=== PATIENT | male | born 1935 | race Native Hawaiian/Other Pacific Islander ===

== ENCOUNTER 2017-10-21 20:34 | Emergency (ER) | payer MEDICARE ==
[2017-10-21] MEDS ORDERED: APRESOLINE IV ONE (21:33)
--- NOTE | 2017-10-21 21:40 | Emergency Department Report ---
ED Altered Mental Status HPI - General Stated Complaint: ABD PAIN Time Seen by Provider: 10/21/17 21:24 Source: patient, family Limitations: Language Barrier, Altered Mental Status - History of Present Illness Initial Comments: Patient is 82 years old male with history of diabetes and hypertension and asthma. Patient brought in by his family for main complaint of confusion and scrotal swelling was whitish discharge. Family stated he woke up this morning confused. Patient is disoriented in time. But not place and person. Family denied fever, nausea or vomiting. No recent trauma or head injury. Patient denied any chest pain, abdominal pain or other type of pain. MD Complaint: altered mental status, confusion -: This morning Severity: moderate Context: diabetes - Related Data Home Medications Medication Instructions Recorded Confirmed Last Taken Lisinopril 40 mg PO QDAY 08/29/14 07/03/16 1 Day Ago ~07/02/16 metFORMIN [Glucophage] 500 mg PO BID 08/29/14 07/03/16 1 Day Ago ~07/02/16 amLODIPine [Norvasc] 10 mg PO DAILY 07/03/16 07/03/16 1 Day Ago ~07/02/16 Previous Rx's Medication Instructions Recorded Last Taken Type Simvastatin 40 mg PO QHS #30 tablet 08/30/14 1 Day Ago Rx ~07/02/16 Ciprofloxacin HCl [Ciprofloxacin 500 mg PO Q12HR #14 tab 07/04/16 Unknown Rx TAB] HYDROcodone/APAP 5-325 [[place] 1 - 2 each PO Q6HR PRN #14 tablet 07/04/16 Unknown Rx 5/325] Ibuprofen [Motrin 800 MG tab] 800 mg PO Q8HR PRN #20 tablet 07/04/16 Unknown Rx Allergies Allergy/AdvReac Type Severity Reaction Status Date / Time Penicillins Allergy Severe Shortness Verified 07/03/16 23:26 of Breath ED Review of Systems ROS: Stated complaint: ABD PAIN Other details as noted in HPI Comment: All other systems reviewed and negative Constitutional: denies: chills, malaise Respiratory: denies: cough, orthopnea, shortness of breath, SOB with exertion, SOB at rest, wheezing Cardiovascular: denies: chest pain, palpitations, dyspnea on exertion Gastrointestinal: denies: abdominal pain, nausea, vomiting, diarrhea, constipation, hematemesis, melena, hematochezia Genitourinary: discharge, other (testicular swelling). denies: urgency, hematuria, testicular pain Neurological: denies: headache, weakness, numbness, paresthesias, confusion, abnormal gait, vertigo ED Past Medical Hx - Past Medical History Hx Hypertension: Yes Hx Diabetes: Yes Hx Arthritis: Yes Hx Asthma: Yes Additional medical history: cholesterol - Surgical History Additional Surgical History: hernia repair - Social History Smoking Status: Never Smoker Substance Use Type: None - Medications Home Medications: Home Medications Medication Instructions Recorded Confirmed Last Taken Type Lisinopril 40 mg PO QDAY 08/29/14 07/03/16 1 Day Ago History ~07/02/16 metFORMIN [Glucophage] 500 mg PO BID 08/29/14 07/03/16 1 Day Ago History ~07/02/16 Simvastatin 40 mg PO QHS #30 tablet 08/30/14 07/03/16 1 Day Ago Rx ~07/02/16 amLODIPine [Norvasc] 10 mg PO DAILY 07/03/16 07/03/16 1 Day Ago History ~07/02/16 Ciprofloxacin HCl [Ciprofloxacin 500 mg PO Q12HR #14 tab 07/04/16 Unknown Rx TAB] HYDROcodone/APAP 5-325 [[place] 1 - 2 each PO Q6HR PRN #14 tablet 07/04/16 Unknown Rx 5/325] Ibuprofen [Motrin 800 MG tab] 800 mg PO Q8HR PRN #20 tablet 07/04/16 Unknown Rx ED Physical Exam - General Limitations: Language Barrier, Altered Mental Status General appearance: alert, in no apparent distress - Head Head exam: Present: atraumatic, normocephalic, normal inspection - Eye Eye exam: Present: normal appearance, PERRL - ENT ENT exam: Present: normal exam, normal orophraynx, mucous membranes moist - Neck Neck exam: Present: normal inspection, full ROM. Absent: tenderness, meningismus, lymphadenopathy, thyromegaly - Respiratory Respiratory exam: Present: normal lung sounds bilaterally. Absent: respiratory distress, wheezes, rales, rhonchi, stridor, chest wall tenderness, accessory muscle use, decreased breath sounds, prolonged expiratory - Cardiovascular Cardiovascular Exam: Present: regular rate, normal rhythm, normal heart sounds - GI/Abdominal GI/Abdominal exam: Present: soft, normal bowel sounds. Absent: distended, tenderness, guarding, rebound, rigid, organomegaly, mass, bruit, pulsatile mass - exam: Present: normal inspection. Absent: testicular tenderness, urethral discharge, scrotal swelling, circumcision External exam: Present: erythema, other (CandiDIASIS). Absent: swelling, lacerations, ecchymosis, bleeding - Extremities Exam Extremities exam: Present: normal inspection, full ROM, normal capillary refill. Absent: tenderness, pedal edema, joint swelling, calf tenderness - Back Exam Back exam: Present: normal inspection, full ROM. Absent: tenderness, CVA tenderness (R), CVA tenderness (L), muscle spasm, paraspinal tenderness, vertebral tenderness, rash noted - Neurological Exam Neurological exam: Present: alert, altered, CN II-XII intact, normal gait, reflexes normal - Skin Skin exam: Present: warm, intact, normal color ED Course Vital Signs 10/21/17 10/21/17 10/21/17 21:22 21:30 21:36 Temperature 98.5 F Pulse Rate 104 H 107 H Respiratory 18 23 Rate Blood Pressure 210/119 182/108 210/119 Blood Pressure 210/119 [Left] O2 Sat by Pulse 99 99 Oximetry 10/21/17 10/21/17 10/21/17 21:45 21:58 22:00 Temperature Pulse Rate 99 H 100 H 108 H Respiratory 20 12 Rate Blood Pressure 182/108 186/116 144/90 Blood Pressure [Left] O2 Sat by Pulse 98 99 Oximetry 10/21/17 10/21/17 10/21/17 22:15 22:37 22:45 Temperature Pulse Rate 107 H 101 H Respiratory 20 21 Rate Blood Pressure 153/86 153/86 124/81 Blood Pressure [Left] O2 Sat by Pulse 98 98 98 Oximetry 10/21/17 10/21/17 10/21/17 23:00 23:15 23:31 Temperature Pulse Rate 100 H 104 H 107 H Respiratory 13 20 20 Rate Blood Pressure 129/81 134/78 141/83 Blood Pressure [Left] O2 Sat by Pulse 99 98 98 Oximetry 10/22/17 10/22/17 10/22/17 00:25 00:30 00:45 Temperature Pulse Rate 101 H 99 H 101 H Respiratory 12 10 L 16 Rate Blood Pressure 151/91 145/94 145/94 Blood Pressure [Left] O2 Sat by Pulse 98 98 98 Oximetry 10/22/17 10/22/17 10/22/17 01:00 01:15 01:30 Temperature Pulse Rate 97 H 94 H 94 H Respiratory 14 14 20 Rate Blood Pressure 134/65 145/94 145/72 Blood Pressure [Left] O2 Sat by Pulse 98 97 97 Oximetry - Reevaluation(s) Reevaluation #1: 10/22/17 02:45 Patient stated that he is feeling better. I informed the family about his blood work, ultrasound and CAT scan. - Lab Data Result diagrams: 10/21/17 21:45 10/21/17 21:45 Lab Results 10/21/17 10/21/17 10/21/17 Range/Units 21:45 21:45 21:45 WBC 7.4 (4.5-11.0) K/mm3 RBC 4.61 (3.65-5.03) M/mm3 Hgb 14.3 (11.8-15.2) gm/dl Hct 41.0 (35.5-45.6) % MCV 89 (84-94) fl MCH 31 (28-32) pg MCHC 35 H (32-34) % RDW 13.2 (13.2-15.2) % Plt Count 136 L (140-440) K/mm3 Lymph % (Auto) 19.8 (13.4-35.0) % [place] % (Auto) 8.2 H (0.0-7.3) % Eos % (Auto) 2.6 (0.0-4.3) % Baso % (Auto) 0.6 (0.0-1.8) % Lymph # 1.5 (1.2-5.4) K/mm3 [place] # 0.6 (0.0-0.8) K/mm3 Eos # 0.2 (0.0-0.4) K/mm3 Baso # 0.0 (0.0-0.1) K/mm3 Seg Neutrophils % 68.8 (40.0-70.0) % Seg Neutrophils # 5.1 (1.8-7.7) K/mm3 PT 13.8 (12.2-14.9) Sec. INR 1.01 (0.87-1.13) APTT 29.4 (24.2-36.6) Sec. Sodium 135 L (137-145) mmol/L Potassium 4.0 (3.6-5.0) mmol/L Chloride 96.7 L (98-107) mmol/L Carbon Dioxide 24 (22-30) mmol/L Anion Gap 18 mmol/L BUN 19 (9-20) mg/dL Creatinine 1.0 (0.8-1.5) mg/dL Estimated GFR > 60 ml/min BUN/Creatinine Ratio 19 % Glucose 389 H (75-100) mg/dL POC Glucose (70-105) Lactic Acid (0.7-2.0) mmol/L Calcium 9.0 (8.4-10.2) mg/dL Total Bilirubin 0.20 (0.1-1.2) mg/dL AST 12 (5-40) units/L ALT 6 L (7-56) units/L Alkaline Phosphatase 130 H (35-129) units/L Troponin T < 0.010 (0.00-0.029) ng/mL Total Protein 6.6 (6.3-8.2) g/dL Albumin 3.7 L (3.9-5) g/dL Albumin/Globulin Ratio 1.3 % Urine Color (Yellow) Urine Turbidity (Clear) Urine pH (5.0-7.0) Ur Specific [place] (1.003-1.030) Urine Protein (Negative) mg/dL Urine Glucose (UA) (Negative) mg/dL Urine Ketones (Negative) mg/dL Urine Blood (Negative) Urine Nitrite (Negative) Urine Bilirubin (Negative) Urine Urobilinogen (<2.0) mg/dL Ur Leukocyte Esterase (Negative) Urine WBC (Auto) (0.0-6.0) /HPF Urine RBC (Auto) (0.0-6.0) /HPF Urine Opiates Screen Urine Methadone Screen Ur Barbiturates Screen Ur Phencyclidine Scrn Ur Amphetamines Screen U Benzodiazepines Scrn Urine Cocaine Screen U Marijuana (THC) Screen Drugs of Abuse Note 10/21/17 10/21/17 10/21/17 Range/Units 21:45 22:01 22:01 WBC (4.5-11.0) K/mm3 RBC (3.65-5.03) M/mm3 Hgb (11.8-15.2) gm/dl Hct (35.5-45.6) % MCV (84-94) fl MCH (28-32) pg MCHC (32-34) % RDW (13.2-15.2) % Plt Count (140-440) K/mm3 Lymph % (Auto) (13.4-35.0) % [place] % (Auto) (0.0-7.3) % Eos % (Auto) (0.0-4.3) % Baso % (Auto) (0.0-1.8) % Lymph # (1.2-5.4) K/mm3 [place] # (0.0-0.8) K/mm3 Eos # (0.0-0.4) K/mm3 Baso # (0.0-0.1) K/mm3 Seg Neutrophils % (40.0-70.0) % Seg Neutrophils # (1.8-7.7) K/mm3 PT (12.2-14.9) Sec. INR (0.87-1.13) APTT (24.2-36.6) Sec. Sodium (137-145) mmol/L Potassium (3.6-5.0) mmol/L Chloride (98-107) mmol/L Carbon Dioxide (22-30) mmol/L Anion Gap mmol/L BUN (9-20) mg/dL Creatinine (0.8-1.5) mg/dL Estimated GFR ml/min BUN/Creatinine Ratio % Glucose (75-100) mg/dL POC Glucose (70-105) Lactic Acid 1.70 (0.7-2.0) mmol/L Calcium (8.4-10.2) mg/dL Total Bilirubin (0.1-1.2) mg/dL AST (5-40) units/L ALT (7-56) units/L Alkaline Phosphatase (35-129) units/L Troponin T (0.00-0.029) ng/mL Total Protein (6.3-8.2) g/dL Albumin (3.9-5) g/dL Albumin/Globulin Ratio % Urine Color Yellow (Yellow) Urine Turbidity Clear (Clear) Urine pH 7.0 (5.0-7.0) Ur Specific [place] 1.022 (1.003-1.030) Urine Protein <15 mg/dl (Negative) mg/dL Urine Glucose (UA) >=500 (Negative) mg/dL Urine Ketones Neg (Negative) mg/dL Urine Blood Neg (Negative) Urine Nitrite Neg (Negative) Urine Bilirubin Neg (Negative) Urine Urobilinogen < 2.0 (<2.0) mg/dL Ur Leukocyte Esterase Neg (Negative) Urine WBC (Auto) < 1.0 (0.0-6.0) /HPF Urine RBC (Auto) 1.0 (0.0-6.0) /HPF Urine Opiates Screen Presumptive negative Urine Methadone Screen Presumptive negative Ur Barbiturates Screen Presumptive negative Ur Phencyclidine Scrn Presumptive negative Ur Amphetamines Screen Presumptive negative U Benzodiazepines Scrn Presumptive negative Urine Cocaine Screen Presumptive negative U Marijuana (THC) Screen Presumptive negative Drugs of Abuse Note Disclamer 10/21/17 10/22/17 Range/Units 23:00 02:15 WBC (4.5-11.0) K/mm3 RBC (3.65-5.03) M/mm3 Hgb (11.8-15.2) gm/dl Hct (35.5-45.6) % MCV (84-94) fl MCH (28-32) pg MCHC (32-34) % RDW (13.2-15.2) % Plt Count (140-440) K/mm3 Lymph % (Auto) (13.4-35.0) % [place] % (Auto) (0.0-7.3) % Eos % (Auto) (0.0-4.3) % Baso % (Auto) (0.0-1.8) % Lymph # (1.2-5.4) K/mm3 [place] # (0.0-0.8) K/mm3 Eos # (0.0-0.4) K/mm3 Baso # (0.0-0.1) K/mm3 Seg Neutrophils % (40.0-70.0) % Seg Neutrophils # (1.8-7.7) K/mm3 PT (12.2-14.9) Sec. INR (0.87-1.13) APTT (24.2-36.6) Sec. Sodium (137-145) mmol/L Potassium (3.6-5.0) mmol/L Chloride (98-107) mmol/L Carbon Dioxide (22-30) mmol/L Anion Gap mmol/L BUN (9-20) mg/dL Creatinine (0.8-1.5) mg/dL Estimated GFR ml/min BUN/Creatinine Ratio % Glucose (75-100) mg/dL POC Glucose 342 H 257 H (70-105) Lactic Acid (0.7-2.0) mmol/L Calcium (8.4-10.2) mg/dL Total Bilirubin (0.1-1.2) mg/dL AST (5-40) units/L ALT (7-56) units/L Alkaline Phosphatase (35-129) units/L Troponin T (0.00-0.029) ng/mL Total Protein (6.3-8.2) g/dL Albumin (3.9-5) g/dL Albumin/Globulin Ratio % Urine Color (Yellow) Urine Turbidity (Clear) Urine pH (5.0-7.0) Ur Specific [place] (1.003-1.030) Urine Protein (Negative) mg/dL Urine Glucose (UA) (Negative) mg/dL Urine Ketones (Negative) mg/dL Urine Blood (Negative) Urine Nitrite (Negative) Urine Bilirubin (Negative) Urine Urobilinogen (<2.0) mg/dL Ur Leukocyte Esterase (Negative) Urine WBC (Auto) (0.0-6.0) /HPF Urine RBC (Auto) (0.0-6.0) /HPF Urine Opiates Screen Urine Methadone Screen Ur Barbiturates Screen Ur Phencyclidine Scrn Ur Amphetamines Screen U Benzodiazepines Scrn Urine Cocaine Screen U Marijuana (THC) Screen Drugs of Abuse Note Critical care attestation.: If time is entered above; I have spent that time in minutes in the direct care of this critically ill patient, excluding procedure time. ED Disposition Clinical Impression: Hypertension, Confusion, Cand[place] intertrigo Disposition: TO HOME OR SELFCARE Is pt being admited?: No Condition: Stable Instructions: Hypertension (ED) Referrals: PRIMARY CARE, [Primary Care Provider] - 3-5 Days
[2017-10-21 22:23] LABS: Basophils % (Auto) 0.6 % (0.0-1.8); Eosinophils # (Auto) 0.2 K/mm3 (0.0-0.4); Eosinophils % (Auto) 2.6 % (0.0-4.3); Hemoglobin 14.3 gm/dl (11.8-15.2); Lymphocytes # (Auto) 1.5 K/mm3 (1.2-5.4); Lymphocytes % (Auto) 19.8 % (13.4-35.0); Mean Corpuscular HGB Conc 35 % (32-34); Mean Corpuscular Hemoglobin 31 pg (28-32); Mean Corpuscular Volume 89 fl (84-94); Monocytes # (Auto) 0.6 K/mm3 (0.0-0.8); Monocytes % (Auto) 8.2 % (0.0-7.3); Platelet Count 136 K/mm3 (140-440); Red Blood Count 4.61 M/mm3 (3.65-5.03); Red Cell Distribution Width 13.2 % (13.2-15.2)
[2017-10-21 22:32] LABS: INR 1.01 (0.87-1.13)
[2017-10-21 22:32] LABS: Bilirubin,Urine NEG (Negative); Blood,Urine NEG (Negative); Color,Urine Yellow (Yellow); Protein,Urine <15 mg/dL mg/dL (Negative); Urobilinogen,Urine < 2.0 mg/dL (<2.0); WBC,Urine < 1.0 /HPF (0.0-6.0)
[2017-10-21 22:34] LABS: Amphetamine Screen,Urine PRESUMPTIVE NEGATIVE; Benzodiazepines Screen,Urine PRESUMPTIVE NEGATIVE; Cannabinoid Screen,Urine PRESUMPTIVE NEGATIVE; Cocaine Screen,Urine PRESUMPTIVE NEGATIVE; Methadone Screen,Urine PRESUMPTIVE NEGATIVE; Opiate Screen,Urine PRESUMPTIVE NEGATIVE
[2017-10-21 22:34] LABS: Partial Thromboplastin Time 29.4 Sec. (24.2-36.6)
[2017-10-21 22:36] LABS: Alanine Aminotransferase 6 units/L (7-56); Albumin 3.7 g/dL (3.9-5); BUN/Creatinine Ratio 19; Blood Urea Nitrogen 19 mg/dL (9-20); Hemolysis Index 2
[2017-10-21] MEDS ORDERED: HumuLIN R IV ONE (22:49)
--- NOTE | 2017-10-21 23:22 | Cat Scan Report ---
FINAL REPORT EXAM: CT HEAD/BRAIN WO CON HISTORY: Altered Mental Status TECHNIQUE: CT head without contrast PRIORS: None. FINDINGS: No acute intra-axial or extra-axial hemorrhage is identified. There is no evidence of midline shift or mass effect. There is generalized prominence of ventricles and sulci consistent with mild generalized atrophy. Mai-white matter differentiation is intact. No acute parenchymal abnormalities seen. There are patchy and confluent hypodensities within the supratentorial white matter. Bony calvarium is grossly intact. Visualized portions of the mastoids and paranasal sinuses are unremarkable. 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
--- NOTE | 2017-10-21 23:34 | XRay Report ---
FINAL REPORT PROCEDURE: XR CHEST 1V AP TECHNIQUE: Chest radiograph anteroposterior view. CPT 33105 HISTORY: Altered Mental Status COMPARISON: No prior studies are available for comparison. FINDINGS: Heart: Normal. Mediastinum/Vessels: Normal. Lungs/Pleural space: Lungs are expanded. There is calcified granuloma at the left lung base. There are no infiltrates, effusions or pneumothoraces.. Bony thorax: No acute osseous abnormality. Life support devices: None. IMPRESSION: No acute cardiopulmonary abnormality.
--- NOTE | 2017-10-22 01:44 | Ultrasound Report ---
FINAL REPORT PROCEDURE: US TESTICULAR DOPPLER COMP TECHNIQUE: Real-time person-scale and color flow Doppler sonography in multiple planes of the scrotum, testicles, and epididymes was performed. Velocity spectral waveform analysis Doppler imaging of the arterial inflow and venous outflow of the testicles was performed with image documentation. CPT 27030 and 52382 HISTORY: testicular pain/swelling COMPARISON: No prior studies are available for comparison. FINDINGS: RIGHT TESTICLE: Size: 4.9 x 1.9 x 3.5 cm . Appearance: Heterogeneous echotexture. There is no discrete mass. Arterial blood flow: Normal spectral waveforms, flow velocities and color flow images.. Venous blood flow: Normal spectral waveforms and color flow images. Right epididymis: Normal size and echotexture . Hydrocele: There is a small hydrocele.. LEFT TESTICLE Size: 4.4 x 2.5 x 2.7 cm. There is a small septated cyst measuring 4.5 millimeters. Appearance: Heterogeneous echotexture. There is no discrete mass.. Arterial blood flow: Normal spectral waveforms, flow velocities and color flow images.. Venous blood flow: Normal spectral waveforms and color flow images. Leftepididymis: Normal size and echotexture . Hydrocele: Small hydrocele.. IMPRESSION: There is no testicular torsion or orchitis. There are small bilateral hydroceles.
[2017-10-22 03:23] VITALS: BP 136/68
== END 2017-10-22 03:24 | disposition home or self-care (01) ==
LOC: ED 20:34
DX: I10 Essential (primary) hypertension (principal); E11.9 Type 2 diabetes mellitus without complications; J45.909 Unspecified asthma, uncomplicated; Z88.0 Allergy status to penicillin
CPT/HCPCS: 36415; 70450; 71045; 80053; 80307; 81001; 82140; 82962; 84484; 85025; 85610; 85730; 87040; 93005; 93010; 93975; 96374; 96375; 99285; J0360; J1815

== ENCOUNTER 2017-11-04 12:41 | Emergency (ER) | payer MEDICARE ==
[2017-11-04] MEDS ORDERED: DIPRIVAN 10 MG/ML 0 MG/0 ML BOTTLE IV ONE (12:59)
--- NOTE | 2017-11-04 13:06 | Emergency Department Report ---
ED Altered Mental Status HPI - General Chief Complaint: Altered Mental Status Stated Complaint: POSS STROKE Time Seen by Provider: 11/04/17 13:05 Source: EMS Mode of arrival: Stretcher Limitations: Altered Mental Status - History of Present Illness Initial Comments: Patient arrives unable to give history no family members around for history EMS states altered mental status for 30 minutes. No trauma. Arrives with nonverbal eyes not opening with localizing pain essentially Jameel Coma Scale of 8 with possible left-sided deficits. As recently noted no trauma. Remainder of the history was unobtainable. is present but is hard of hearing and speaks no [place] patient arrives altered mental status pinpoint pupils no fever possibly acute CVA MD Complaint: altered mental status, confusion, weakness Severity: mild, moderate, severe Context: other (possible stroke) Associated Symptoms: syncope. denies: chest pain, cough, diaphoresis, fever/ chills, headaches, nausea/vomiting, rash, seizure, shortness of breath, weakness , foul smelling urine - Related Data Home Medications Medication Instructions Recorded Confirmed Last Taken Lisinopril 40 mg PO QDAY 08/29/14 07/03/16 1 Day Ago ~07/02/16 metFORMIN [Glucophage] 500 mg PO BID 08/29/14 07/03/16 1 Day Ago ~07/02/16 amLODIPine [Norvasc] 10 mg PO DAILY 07/03/16 07/03/16 1 Day Ago ~07/02/16 Previous Rx's Medication Instructions Recorded Last Taken Type Simvastatin 40 mg PO QHS #30 tablet 08/30/14 1 Day Ago Rx ~07/02/16 Ciprofloxacin HCl [Ciprofloxacin 500 mg PO Q12HR #14 tab 07/04/16 Unknown Rx TAB] HYDROcodone/APAP 5-325 [[place] 1 - 2 each PO Q6HR PRN #14 tablet 07/04/16 Unknown Rx 5/325] Ibuprofen [Motrin 800 MG tab] 800 mg PO Q8HR PRN #20 tablet 07/04/16 Unknown Rx Fluconazole [Diflucan] 150 mg PO BID #6 tablet 10/22/17 Unknown Rx Allergies Allergy/AdvReac Type Severity Reaction Status Date / Time Penicillins Allergy Severe Shortness Verified 07/03/16 23:26 of Breath ED Review of Systems ROS: Stated complaint: POSS STROKE Other details as noted in HPI Comment: Unobtainable due to pts medical conditions ED Past Medical Hx - Past Medical History Hx Hypertension: Yes Hx Diabetes: Yes Hx Arthritis: Yes Hx Asthma: Yes Additional medical history: cholesterol - Surgical History Additional Surgical History: hernia repair - Social History Smoking Status: Unknown if ever smoked - Medications Home Medications: Home Medications Medication Instructions Recorded Confirmed Last Taken Type Lisinopril 40 mg PO QDAY 08/29/14 07/03/16 1 Day Ago History ~07/02/16 metFORMIN [Glucophage] 500 mg PO BID 08/29/14 07/03/16 1 Day Ago History ~07/02/16 Simvastatin 40 mg PO QHS #30 tablet 08/30/14 07/03/16 1 Day Ago Rx ~07/02/16 amLODIPine [Norvasc] 10 mg PO DAILY 07/03/16 07/03/16 1 Day Ago History ~07/02/16 Ciprofloxacin HCl [Ciprofloxacin 500 mg PO Q12HR #14 tab 07/04/16 Unknown Rx TAB] HYDROcodone/APAP 5-325 [[place] 1 - 2 each PO Q6HR PRN #14 tablet 07/04/16 Unknown Rx 5/325] Ibuprofen [Motrin 800 MG tab] 800 mg PO Q8HR PRN #20 tablet 07/04/16 Unknown Rx Fluconazole [Diflucan] 150 mg PO BID #6 tablet 10/22/17 Unknown Rx ED Physical Exam - General Limitations: Language Barrier, Altered Mental Status General appearance: lethargic, obtunded, other (Jameel Coma Scale of 8 possible gag reflex but poorly arousable and unable to handle his saliva) - Eye Eye exam: Present: other Pupils: Present: miosis - ENT ENT exam: Present: other (drooling) - Neck Neck exam: Present: normal inspection. Absent: tenderness, meningismus - Respiratory Respiratory exam: Present: normal lung sounds bilaterally. Absent: respiratory distress, wheezes, rales, rhonchi, stridor - Cardiovascular Cardiovascular Exam: Present: regular rate, normal heart sounds. Absent: rubs, gallop - GI/Abdominal GI/Abdominal exam: Present: soft. Absent: distended, tenderness, guarding, rebound, mass, pulsatile mass - Extremities Exam Extremities exam: Present: pedal edema. Absent: calf tenderness - Back Exam Back exam: Present: normal inspection. Absent: CVA tenderness (L), muscle spasm , paraspinal tenderness, vertebral tenderness - Neurological Exam Neurological exam: Present: other (patient is unresponsive to I opening and verbal however he does withdraw to pain [place] Coma Scale of 8) - Psychiatric Psychiatric exam: Present: other (poorly responsive) - Skin Skin exam: Present: diaphoretic. Absent: petechiae - Assessment Assessment Interval: Baseline - Level of Consciousness 1a. Level of Consciousness: not alert, rep stimuli - LOC Questions 1b. LOC Questions: answers no questions correctly - LOC Command 1c. LOC Commands: performs no tasks correctly - Best Gaze 2. Best Gaze: partial gaze palsy - Visual 3. Visual: partial hemianopia - Facial Palsy 4. Facial Palsy: partial paralysis - Motor Arm 5a. Motor Arm Left: some gravity effort - Motor Leg 6a. Motor Leg Left: some gravity effort - Limb Ataxia 7. Limb Ataxia: absent - Sensory 8. Sensory: mild/moderate sensory loss - Best Language 9. Best Language: mute/global aphasia - Dysarthria 10. Dysarthria: intubated or other barrier - Extinction and Inattention 11. Extinction/Inattention: profound inattention ED Course Vital Signs 11/04/17 11/04/17 11/04/17 12:41 12:47 12:53 Temperature 98.4 F Pulse Rate 94 H 93 H 93 H Respiratory 12 18 Rate Blood Pressure 173/99 Blood Pressure 167/93 167/93 [Right] O2 Sat by Pulse 100 Oximetry 11/04/17 11/04/17 11/04/17 13:02 13:09 13:30 Temperature Pulse Rate 93 H 94 H 91 H Respiratory 18 16 16 Rate Blood Pressure Blood Pressure 225/128 177/105 165/85 [Right] O2 Sat by Pulse 100 Oximetry 11/04/17 11/04/17 13:43 14:00 Temperature Pulse Rate 88 91 H Respiratory 3 L 18 Rate Blood Pressure 160/101 Blood Pressure 157/99 [Right] O2 Sat by Pulse 100 Oximetry - Reevaluation(s) Reevaluation #1: 11/04/17 14:29 Patient was 30 minutes in an altered mental status on arrival stroke protocol was followed however family did later relate that he was essentially last normal at congregation on Friday - Lab Data Result diagrams: 11/04/17 13:10 11/04/17 13:10 Lab Results 11/04/17 11/04/17 11/04/17 Range/Units 13:10 13:10 13:10 WBC 8.6 (4.5-11.0) K/mm3 RBC 4.94 (3.65-5.03) M/mm3 Hgb 15.2 (11.8-15.2) gm/dl Hct 43.8 (35.5-45.6) % MCV 89 (84-94) fl MCH 31 (28-32) pg MCHC 35 H (32-34) % RDW 13.8 (13.2-15.2) % Plt Count 166 (140-440) K/mm3 Lymph % (Auto) 11.1 L (13.4-35.0) % [place] % (Auto) 6.7 (0.0-7.3) % Eos % (Auto) 0.7 (0.0-4.3) % Baso % (Auto) 0.6 (0.0-1.8) % Lymph # 1.0 L (1.2-5.4) K/mm3 [place] # 0.6 (0.0-0.8) K/mm3 Eos # 0.1 (0.0-0.4) K/mm3 Baso # 0.1 (0.0-0.1) K/mm3 Seg Neutrophils % 80.9 H (40.0-70.0) % Seg Neutrophils # 7.0 (1.8-7.7) K/mm3 PT 14.3 (12.2-14.9) Sec. INR 1.05 (0.87-1.13) APTT 26.3 (24.2-36.6) Sec. Thrombin Time (15.1-19.6) Sec. Sodium 137 (137-145) mmol/L Potassium 3.8 (3.6-5.0) mmol/L Chloride 98.7 (98-107) mmol/L Carbon Dioxide 22 (22-30) mmol/L Anion Gap 20 mmol/L BUN 11 (9-20) mg/dL Creatinine 0.8 (0.8-1.5) mg/dL Estimated GFR > 60 ml/min BUN/Creatinine Ratio 14 % Glucose 315 H (75-100) mg/dL Calcium 9.3 (8.4-10.2) mg/dL Troponin T 0.015 (0.00-0.029) ng/mL 11/04/17 Range/Units 13:10 WBC (4.5-11.0) K/mm3 RBC (3.65-5.03) M/mm3 Hgb (11.8-15.2) gm/dl Hct (35.5-45.6) % MCV (84-94) fl MCH (28-32) pg MCHC (32-34) % RDW (13.2-15.2) % Plt Count (140-440) K/mm3 Lymph % (Auto) (13.4-35.0) % [place] % (Auto) (0.0-7.3) % Eos % (Auto) (0.0-4.3) % Baso % (Auto) (0.0-1.8) % Lymph # (1.2-5.4) K/mm3 [place] # (0.0-0.8) K/mm3 Eos # (0.0-0.4) K/mm3 Baso # (0.0-0.1) K/mm3 Seg Neutrophils % (40.0-70.0) % Seg Neutrophils # (1.8-7.7) K/mm3 PT (12.2-14.9) Sec. INR (0.87-1.13) APTT (24.2-36.6) Sec. Thrombin Time 15.9 (15.1-19.6) Sec. Sodium (137-145) mmol/L Potassium (3.6-5.0) mmol/L Chloride (98-107) mmol/L Carbon Dioxide (22-30) mmol/L Anion Gap mmol/L BUN (9-20) mg/dL Creatinine (0.8-1.5) mg/dL Estimated GFR ml/min BUN/Creatinine Ratio % Glucose (75-100) mg/dL Calcium (8.4-10.2) mg/dL Troponin T (0.00-0.029) ng/mL - EKG Data -: EKG Interpreted by Me EKG shows normal: sinus rhythm When compared to previous EKG there are: other (no acute ischemic change) - Radiology Data Radiology results: report reviewed - Medical Decision Making Given GCS of 8 patient was intubated with rapid sequence intubation, he was emergently sent to CAT scan within the 30 minute window case was discussed with Dr. Flores of tele neurology who did evaluate the patient as well. CT results did show occipital lobe nonhemorrhagic infarct subacute with vertebrobasilar ischemia and likely brainstem stroke all of it nonhemorrhagic by likely subacute. Dr. choudhary stated than there was no interventions available given the nature of the length of time since symptoms began as well as the severity. Patient has had previous strokes case was discussed with Dr. Muñoz of hospital service for further evaluation and likely hospice. 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 ED Disposition Clinical Impression: CVA (cerebral vascular accident) Disposition: [id number]/TX-[id number] ANOTHER TYPE HLTHCARE Is pt being admited?: No Condition: Stable Referrals: PRIMARY CARE, [Primary Care Provider] - 3-5 Days Time of Disposition: 14:33
[2017-11-04] MEDS ORDERED: VASELINE LIP THERAPY TP PRN (13:07)
[2017-11-04] MEDS ORDERED: ARTIFICIAL TEARS OPHTH OINT OU PRN (13:07)
[2017-11-04 13:15] LABS: Basophils # (Auto) 0.1 K/mm3 (0.0-0.1); Basophils % (Auto) 0.6 % (0.0-1.8); Eosinophils # (Auto) 0.1 K/mm3 (0.0-0.4); Eosinophils % (Auto) 0.7 % (0.0-4.3); Hematocrit 43.8 % (35.5-45.6); Hemoglobin 15.2 gm/dl (11.8-15.2); Lymphocytes % (Auto) 11.1 % (13.4-35.0); Mean Corpuscular HGB Conc 35 % (32-34); Mean Corpuscular Hemoglobin 31 pg (28-32); Mean Corpuscular Volume 89 fl (84-94); Monocytes # (Auto) 0.6 K/mm3 (0.0-0.8); Monocytes % (Auto) 6.7 % (0.0-7.3); Platelet Count 166 K/mm3 (140-440); Red Blood Count 4.94 M/mm3 (3.65-5.03); Red Cell Distribution Width 13.8 % (13.2-15.2)
[2017-11-04 13:26] LABS: INR 1.05 (0.87-1.13); Partial Thromboplastin Time 26.3 Sec. (24.2-36.6)
[2017-11-04 13:34] LABS: BUN/Creatinine Ratio 14; Blood Urea Nitrogen 11 mg/dL (9-20); Calcium 9.3 mg/dL (8.4-10.2); Hemolysis Index 1
--- NOTE | 2017-11-04 13:37 | Cat Scan Report ---
CT HEAD WITHOUT CONTRAST: HISTORY: Neurological deficit. TECHNIQUE: Sequential 2.5mm CT images. COMPARISON: 10/21/17. FINDINGS: Moderate to large areas of diminished attenuation have developed in the bilateral occipital lobes consistent with acute or subacute ischemic infarct. There also appear to be very subtle smaller areas of diminished attenuation in both cerebellar hemispheres and possibly the brainstem. There is no evidence for hemorrhage or mass effect. Advanced volume loss and chronic white matter changes are stable. Chronic 1 cm infarct in the right abdomen is again noted. No extra-axial fluid collection or mass is identified. There are at dense vascular calcifications throughout the vertebrobasilar system. The calvarium is intact. Moderate chronic sinusitis involving the maxillary sinuses and ethmoid air cells is noted. IMPRESSION: Multiple areas of diminished attenuation have developed throughout the vertebrobasilar territory as outlined above consistent with acute to subacute ischemia. These findings were discussed with Dr. Heredia in the emergency department at 1325 hrs..
--- NOTE | 2017-11-04 13:38 | Cat Scan Report ---
CT SCAN OF THE CERVICAL SPINE: HISTORY: Fall. TECHNIQUE: Contiguous 1.25 mm axial images of the cervical spine were obtained. Sagittal and coronal reformatted images. FINDINGS: Severe multilevel degenerative disc disease and facet arthropathy are identified at all levels throughout the cervical spine. C5-6 and C6-7 appear to be the most affected levels. There is no evidence for displaced fracture, subluxation or bone lesion. The prevertebral soft tissues are unremarkable. An endotracheal tube and nasogastric tube are in position. IMPRESSION: Advanced cervical spondylosis. No acute process is noted.
[2017-11-04] MEDS ORDERED: AMIDATE IV ONE (14:00)
[2017-11-04] MEDS ORDERED: QUELICIN ONE (14:00)
[2017-11-04] MEDS ORDERED: MIDAZOLAM 100 MG in NACL 0.9% 80 ML IV SCH (14:00)
--- NOTE | 2017-11-04 14:04 | History and Physical Report ---
History of Present Illness Chief complaint: Unresponsive History of present illness: 82 YO Male with HTN, DM, OA,HLD, Asthma present to ED for evaluation. Pt is comatose and unable to provide history. Pt history provided by family who is at bedside during exam and interview. As per family, the was found to be unresponsive. Pt last known well time was around 2000 hrs on the day prior to admission. EMS notified and patient found to be encephalopathic. Pt transported to [facility] for further care and evaluation. Pt seen and evaluated in ED and found to have Acute CVA, as well as acute respiratory failure and is unable to protect his airway. Pt intubated and placed on vent support. Neurology consulted. Pt outside therapeutic window for TPA. Pt initially admitted to ICU. Pt found to have poor prognosis. Pt family elects to make patient DNR, and request Hospice service. Hospice team consulted in ED. Pt discharged to inpatient hospice under care of administrative medical director. Past History Past Medical History: arthritis, diabetes, hypertension Past Surgical History: hernia repair Social history: . denies: smoking, alcohol abuse, prescription drug abuse Family history: hypertension Medications and Allergies Allergies Allergy/AdvReac Type Severity Reaction Status Date / Time Penicillins Allergy Severe Shortness Verified 07/03/16 23:26 of Breath Home Medications Medication Instructions Recorded Confirmed Last Taken Type Lisinopril 40 mg PO QDAY 08/29/14 07/03/16 1 Day Ago History ~07/02/16 metFORMIN [Glucophage] 500 mg PO BID 08/29/14 07/03/16 1 Day Ago History ~07/02/16 Simvastatin 40 mg PO QHS #30 tablet 08/30/14 07/03/16 1 Day Ago Rx ~07/02/16 amLODIPine [Norvasc] 10 mg PO DAILY 07/03/16 07/03/16 1 Day Ago History ~07/02/16 Ciprofloxacin HCl [Ciprofloxacin 500 mg PO Q12HR #14 tab 07/04/16 Unknown Rx TAB] HYDROcodone/APAP 5-325 [[place] 1 - 2 each PO Q6HR PRN #14 tablet 07/04/16 Unknown Rx 5/325] Ibuprofen [Motrin 800 MG tab] 800 mg PO Q8HR PRN #20 tablet 07/04/16 Unknown Rx Fluconazole [Diflucan] 150 mg PO BID #6 tablet 10/22/17 Unknown Rx Active Meds: Active Medications Hydrophilic Ointment (Vaseline Lip Therapy) 1 applic TP Q2HR PRN PRN Reason: Dry Lips Midazolam HCl 100 mg/ Sodium (Chloride) 100 mls @ 2 mls/hr IV TITR EL[place]; Protocol Last Admin: 11/04/17 13:52 Dose: 2 mg/hr, 2 mls/hr Multi-Ingred Cream/Lotion/Oil/Oint (Artificial Tears Ophth Oint) 1 applic OU Q4HR PRN PRN Reason: Dry Eye(s) Review of Systems ROS unobtainable: due to mental status Exam - Constitutional Vitals: Temp Pulse Resp BP Pulse Ox 88 3 L 160/101 100 11/04/17 13:43 11/04/17 13:43 11/04/17 13:43 11/04/17 13:43 General appearance: Present: severe distress - EENT Eyes: Present: miosis - Neck Neck: Present: supple, normal ROM - Respiratory Respiratory effort: labored Respiratory: bilateral: diminished - Cardiovascular Heart Sounds: Present: S1 & S2. Absent: rub, click - Extremities Extremities: pulses symmetrical, No edema Peripheral Pulses: within normal limits - Abdominal General gastrointestinal: Present: soft, non-tender, non-distended, normal bowel sounds Male genitourinary: Present: normal - Integumentary Integumentary: Present: clear, warm, dry - Musculoskeletal Musculoskeletal: generalized weakness - Psychiatric Psychiatric: no intact judgment & insight, no memory intact Results - Labs CBC & Chem 7: 11/04/17 13:10 11/04/17 13:10 Labs: Abnormal lab results 11/04/17 11/04/17 Range/Units 13:10 13:10 MCHC 35 H (32-34) % Lymph % (Auto) 11.1 L (13.4-35.0) % Lymph # 1.0 L (1.2-5.4) K/mm3 Seg Neutrophils % 80.9 H (40.0-70.0) % Glucose 315 H (75-100) mg/dL Assessment and Plan - Patient Problems (1) Respiratory failure Current Visit: Yes Status: Acute Qualifiers: Chronicity: acute Respiratory failure complication: hypoxia Qualified Code(s): J96.01 - Acute respiratory failure with hypoxia Plan to address problem: Pt intubated, sedated, placed on vent support. Pt admitted to ICU for further care. The high probability of a clinically significant, sudden or life threatening deterioration of the [cardiac, pulmonary, neuro] system(s) required my full and direct attention, intervention and personal management. The aggregate critical care time was [65] minutes. This time is in addition to time spent performing reported procedures but includes the following: [x] Data Review and interpretation [x] Patient assessment and monitoring of vital signs [x] Documentation [x] Medication orders and management (2) Encephalopathy Current Visit: Yes Status: Acute Plan to address problem: Supportive care, discharge to hospice (3) CVA (cerebral vascular accident) Current Visit: Yes Status: Acute Qualifiers: Precerebral and cerebral artery: basilar artery Plan to address problem: Stroke protocol. Poor prognosis. Pt family elects to make patient DNR, and request hospice care. Discharge patient to hospice care under care of administrative medical director. (4) DVT prophylaxis Current Visit: Yes Status: Acute
--- NOTE | 2017-11-04 14:55 | XRay Report ---
AP CHEST: HISTORY: Endotracheal tube placement Compared to 10/21/17. An endotracheal tube has been inserted which terminates 3 cm superior to the hayes. A nasogastric tube is followed to the stomach. Heart and mediastinal structures are within normal limits. The lungs are clear. There is mild elevation or eventration of the left hemidiaphragm. IMPRESSION: Adequate placement of lines and tubes. No acute process is identified in the chest.
[2017-11-04] MEDS ORDERED: NACL 0.9% 1000 ML 1,000 ML ONE (15:07)
[2017-11-04] MEDS ORDERED: NACL 0.9% 1000 ML 1,000 ML IV ONE ×2 (15:32→18:19)
[2017-11-04] MEDS ORDERED: ATIVAN IV ONE ×2 (18:20→20:36)
[2017-11-04] MEDS ORDERED: MORPHINE IV ONE (20:35)
[2017-11-04] MEDS ORDERED: ATIVAN ONE (20:39)
[2017-11-04] MEDS ORDERED: MORPHINE ONE (20:40)
[2017-11-04 20:43] VITALS: BP 104/53
== END 2017-11-04 21:30 | disposition other institution (70) ==
LOC: ED 12:41
DX: I63.9 Cerebral infarction, unspecified (principal); I10 Essential (primary) hypertension; E11.9 Type 2 diabetes mellitus without complications; J45.909 Unspecified asthma, uncomplicated
CPT/HCPCS: 31500; 36415; 43752; 51702; 70450; 71045; 72125; 80048; 82803; 84484; 85025; 85610; 85670; 85730; 93005; 93010; 96361; 96365; 96366; 96375; 99291; J0330; J2060; J7030; 94002; J2270; J2704